=== PATIENT | male | born 1965 | race Caucasian/White ===

== ENCOUNTER 2019-11-25 03:05 | Emergency (ER) | payer BC ==
[2019-11-25] MEDS ORDERED: Diazepam 5 MG TAB ONE (04:29)
[2019-11-25] MEDS ORDERED: Acetaminophen 500 MG TAB ONE (04:29)
[2019-11-25] MEDS ORDERED: Morphine 4 MG/ML VIAL ONE ×2 (04:29→06:25)
[2019-11-25 05:01] LABS: #Basophils 0.1 thou/uL (0.0-0.2); #Monocytes 1.4 thou/uL (0.11-0.59); #Neutrophils 9.4 thou/uL (1.40-6.50); %Basophils 0.4 % (0.0-1.0); %Eosinophils 0.3 % (0.0-10.0); %Lymphocytes 15.2 % (21.0-51.0); %Neutrophils 73.2 % (42.0-75.0); Hemoglobin 12.2 g/dL (14.0-18.0); Mean Corpuscular HGB CONC 32.9 g/dL (32.0-36.0); Mean Corpuscular Hemoglobin 31.3 pg (27.0-31.0); Mean Corpuscular Volume 95.2 fL (78.0-98.0); Mean Platelet Volume 7.2 fL (7.4-10.4); Platelet Count 193 thou/uL (130-400); RBC Distribution Width 11.4 % (11.5-14.5); Red Blood Cell (RBC) Count 3.88 mill/uL (4.70-6.10); White Blood Cell (WBC) Count 12.9 thou/uL (4.8-10.8)
[2019-11-25 05:16] LABS: ALT (SGPT) 19 U/L (8-55); AST (SGOT) 13 U/L (5-34); Albumin 3.9 g/dL (3.5-5.0); Alkaline Phosphatase 40 U/L (40-110); Anion Gap 17 mmol/L (10-20); BUN (Urea Nitrogen) 16 mg/dL (8.4-25.7); Calc. Creatinine Clearance 0 mL/min (70-130); Calcium 8.4 mg/dL (7.8-10.44); Carbon Dioxide 23 mmol/L (22-29); Chloride 101 mmol/L (98-107); Estimated GFR-MDRD 57; Globulin 3.3 g/dL (2.4-3.5); Glucose 207 mg/dL (70-105); Potassium 4.3 mmol/L (3.5-5.1); Protein, Total 7.2 g/dL (6.0-8.3); Sodium 137 mmol/L (136-145)
--- NOTE | 2019-11-25 07:20 | RAD ---
Exam:2 views left forearm HISTORY: Pain COMPARISON: None FINDINGS: Fracture, cortical irregularity or periosteal reaction. IMPRESSION: No fracture.
--- NOTE | 2019-11-25 08:52 | CT ---
PRELIMINARY REPORT/[facility]/EMERGENCY AFTER HOURS PROCEDURE: EXAM: CT Lumbar Spine Without Intravenous Contrast. CLINICAL HISTORY: NEW ONSET LBP WITH LEFT SIDED SCIATICA TECHNIQUE: Axial computed tomography images of the lumbar spine without intravenous contrast. Sagittal and coron al reformations performed. COMPARISON: None provided. FINDINGS: BONES: No acute fracture or focal osseous lesion. Bony alignment is anatomic. DISCS/DEGENERATIVE CHANGES: There is a broad-based the left foraminal disc herniation at L4-5 level, causing moderate to severe l eft-sided neural foraminal narrowing and central spinal canal stenosis. SOFT TISSUES: The paraspinal soft tissues are unremarkable. MISCELLANEOUS: There are multiple stones in both kidneys. No hydronephrosis. IMPRESSION: 1. There is a broad-based the left foraminal disc herniation at L4-5 level, causing moderate to sever e left-sided neural foraminal narrowing and central spinal canal stenosis. 2. There are multiple stones in both kidneys. No hydronephrosis. ELECTRONICALLY SIGNED BY: Cas Coleman MD Nov 25, 2019 4:58:08 AM CDT This report is intended for review by the ordering physician only, in accordance of law. If you recei ve this report in error, please call [facility] at [phone]. FINAL REPORT CT LUMBAR SPINE: FINDINGS: The lumbar vertebrae maintain height and alignment. Moderate degenerative osteophytes. Disk protrus ion centrally and to the left at L4-5. Moderate central canal stenosis at this level with left hill inal stenosis. I am in agreement with the preliminary report.
== END 2019-11-25 06:35 | disposition short-term general hospital (02) ==
LOC: MADERS 03:05
DX: M48.061 Spinal stenosis, lumbar region without neurogenic claudication (principal); M51.26 Other intervertebral disc displacement, lumbar region; E11.9 Type 2 diabetes mellitus without complications; E78.5 Hyperlipidemia, unspecified; E78.00 Pure hypercholesterolemia, unspecified
CPT/HCPCS: 72131; 80053; 85025; 96374; 96376; J2270